=== PATIENT | female | born 1960 | race Caucasian/White ===

== ENCOUNTER 2018-11-18 01:32 | Outpatient (CLI) | payer BC, SELFPAY ==
[2018-11-18 10:02] LABS: Hemoglobin A1C 9.9 % (4.5-6.2)
[2018-11-18 10:07] LABS: Anion Gap 10.5 mmol/L (3-11); BUN 18 mg/dL (7-18); CO2 30.5 mmol/L (21.0-32.0); CREATININE 1.19 mg/dL (0.55-1.02); Calcium 10.3 mg/dL (8.5-10.1); Calculated LDL 106 mg/dL; Chloride 102 mmol/L (98-107); Cholesterol 184 mg/dL (50-200); Estimated GFR 46.75 (mL/min/1.73m2); Glucose 101 mg/dL (70-100); HDL Cholesterol 39 mg/dL (40-60); Potassium 4.8 mmol/L (3.5-5.1); Sodium 143 mmol/L (136-145); Triglyceride 195 mg/dL (30-150)
[2018-11-18 10:10] LABS: COMMENT (LAB VIEW ONLY) 94.58 mg/dL
== END 2018-11-18 01:52 ==
PROVIDERS: PCP Registered Nurse; Visit Provider Registered Nurse
DX: E11.65 Type 2 diabetes mellitus with hyperglycemia (principal); E78.5 Hyperlipidemia, unspecified; I10 Essential (primary) hypertension
CPT/HCPCS: 36415; 80048; 80061; 83721; 82043; 82570; 83036

== ENCOUNTER 2019-10-28 03:06 | Outpatient (CLI) | payer BC, SELFPAY ==
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
== END 2019-10-28 03:26 ==
PROVIDERS: PCP Registered Nurse; Visit Provider Dietitian, Registered
DX: E11.9 Type 2 diabetes mellitus without complications (principal); F50.89 Other specified eating disorder; Z71.3 Dietary counseling and surveillance
CPT/HCPCS: 97802

== ENCOUNTER 2019-12-09 04:51 | Outpatient (CLI) | payer BC, SELFPAY ==
--- NOTE | 2019-12-09 14:00 | NS.NUTBLAN_ITS ---
Eloina returns for Medical Nutrition Therapy for binge eating disorder and diabetes management. Eloina does not want to be weighed but appears to have lost about 10 lbs and reports feeling well overall. Eloina reports walking 10 miles per week, 2 miles 5 times a week at work. She reports no purging but has binged about 5 times in last 3 months. She continues to work FT and care for her aging mother after work and on weekends. She attributes her binges on triggers with her relationship with her mother. Diet record indicates well balanced meals and increase in protein rich foods. She is using [employer] to log her meal plan and to monitor calorie and protein intake. Estimated needs: [id number] kcal, 80-100 g protein, 60-80 g protein. Session today focused on her binge eating behaviors, feeling and ways to understand the disorder with less guilt. Provided Eloina with several resources explaining binge eating disorder and different approaches/treatments for it. Plan: 1. Eloina will keep a binge journal and share with typewriter mechanic to be better able to discuss feeling that cause binging. 2. will continue to track meal plan on myCoveritynesspal and monitor nutrient intake. follow up in next couple of months. Eloina to reach out and make appt.
== END 2019-12-09 05:11 ==
PROVIDERS: PCP Registered Nurse; Visit Provider Dietitian, Registered
DX: F50.81 Binge eating disorder (principal); E11.9 Type 2 diabetes mellitus without complications; Z71.3 Dietary counseling and surveillance
CPT/HCPCS: 97803

== ENCOUNTER 2020-05-25 03:44 | Outpatient (CLI) | payer BC, SELFPAY ==
[2020-05-25 07:42] LABS: Hemoglobin A1C 9.4 % (<5.7)
[2020-05-25 10:15] LABS: ALT 21 U/L (14-59); AST 12 U/L (15-37); Albumin 3.4 g/dL (3.4-5.0); Alkaline Phosphatase 99 U/L (46-116); Anion Gap 7.3 mmol/L (3-11); BUN 13 mg/dL (7-18); Bilirubin, Total 0.5 mg/dL (0.2-1.0); CO2 31.7 mmol/L (21.0-32.0); Calcium 9.8 mg/dL (8.5-10.1); Calculated LDL 70 mg/dL (<100); Chloride 104 mmol/L (98-107); Cholesterol 144 mg/dL (<200); Estimated GFR 56.95 (mL/min/1.73m2); Glucose 58 mg/dL (74-106); HDL Cholesterol 52 mg/dL (40-60); Potassium 4.1 mmol/L (3.5-5.1); Sodium 143 mmol/L (136-145); Total Protein 6.1 g/dL (6.4-8.2); Triglyceride 113 mg/dL (<150)
== END 2020-05-25 04:04 ==
PROVIDERS: PCP Registered Nurse; Visit Provider Registered Nurse
DX: E11.65 Type 2 diabetes mellitus with hyperglycemia (principal); I10 Essential (primary) hypertension; E78.5 Hyperlipidemia, unspecified
CPT/HCPCS: 36415; 80053; 80061; 83036

== ENCOUNTER 2020-08-16 13:28 | Emergency (ER) | payer BC, SELFPAY ==
[2020-08-16 13:32] VITALS: BP 124/72; PULSE 75; RESP 20; TEMP 36.5; O2SAT 99
--- NOTE | 2020-08-16 14:43 | W.ED.GENAD ---
Discharge Plan Disposition Patient Disposition: HOME Condition: Stable Discharge Details Clinical Impression: Cellulitis Primary Care Provider: Sisi Belcher ED Provider: Ofe Butts Home Meds and New Rx's Prescriptions: New amoxicillin-pot clavulanate [Augmentin] 875-125 mg tablet 1 tab PO BID Qty: 14 RF: 0 doxycycline hyclate 100 mg capsule 100 mg PO BID Qty: 14 RF: 0 Continued metformin 500 mg tablet See Rx Instructions .ROUTE .COMPLEX RF: 0 atorvastatin 20 mg tablet 20 mg PO QHS RF: 0 Lantus U-100 Insulin 100 unit/mL solution 25 unit SUBCUT QHS RF: 0 trazodone 50 mg tablet 50 mg PO QHS RF: 0 enalapril maleate 20 mg tablet 20 mg PO QAM RF: 0 glimepiride 4 mg tablet 8 mg PO QNOON RF: 0 hydrochlorothiazide 25 mg tablet 25 mg PO DAILY RF: 0 gabapentin 100 mg capsule 100 mg PO TID RF: 0 bupropion HCl 150 mg tablet extended release 24 hr 150 mg PO QAM RF: 0 Bydureon BCise 2 mg/0.85 mL auto-injector SUBCUT QWEEK RF: 0 Discontinued amoxicillin-pot clavulanate 875-125 mg tablet 1 tab PO BID RF: 0 Discharge Instructions Instructions: Doxycycline (By mouth), Cellulitis (ED) Additional Instructions: Please return immediately to the emergency department if you develop any new or worsening symptoms, if your condition does not improve as expected, or if you become otherwise concerned. It is extremely important that you call soon as possible to make an appointment to be seen in follow-up for this visit by your primary care doctor. Referrals: Sisi Belcher [Primary Care Provider] - Discharge Data Discharge Date/Time-TO BE ENTERED AT DEPARTURE: 08/16/20 15:47 Medical Decision Making Eloina Rayo is a 59-year-old woman with a history of diabetes controlled by diet, hypertension, hyperlipidemia who presented to the emergency department with continued erythema and serous drainage from 2 left lower leg wound sustained by cat scratch, patient has completed 14-day course of Augmentin today. Concern for ongoing mild cellulitis despite appropriate outpatient antibiotic coverage. Plan for screening labs, will discuss with infectious disease to avoid parenteral antibiotic/hospital admission given mild appearance of cellulitis and general improvement at this time. Exam/history is not consistent with abscess, compartment syndrome, DVT, sepsis, bony pathology. Labs reviewed, white count 12.8. I discussed patient presentation with infectious disease at [facility] for informal consult, who recommended patient be continued on 7 days of Augmentin, and also have 7 days course of double strength Bactrim added to her regimen. Will prescribe his antibiotics. Discussed with patient, who is amenable to plan. I had a lengthy discussion with Patient regarding return to emergency department precautions, home care, and importance of outpatient follow-up. Pt verbalizes understanding of the plan and is amenable. Patient discharged to home with clear plan for outpatient follow-up. All questions were answered. Disposition decision was made weighing the risks and benefits of hospitalization versus outpatient treatment, the risk for further decompensation, and the patient's wishes. Medical Records Medical records reviewed: Yes I reviewed the patient's medical records. Lab Data Lab results reviewed: Yes I reviewed the patient's lab results. Labs: Laboratory Tests Range/Units 08/16/20 08/16/20 15:05 15:05 WBC (4.4-10.8) 10^3/uL 12.83 H RBC (3.93-5.22) 10^6/uL 5.45 H Hgb (11.2-15.7) g/dL 15.4 Hct (36.0-46.0) % 48.2 H MCV (80-95) fL 88.4 MCH (27.0-33.0) pg 28.3 MCHC (32.0-36.0) % 32.0 RDW (11.7-14.6) % 13.2 Plt Count (130-400) 10^3/uL 386 MPV (8.0-11.0) fL 10.3 Immature Gran % 0.3 Neutrophils % 49.0 Lymphocytes % 37.9 Monocytes % 5.2 Eosinophils % 6.7 Basophils % 0.9 Nucleated RBC % % 0 Absolute Neutrophils (1.2-6.7) 10^3/uL 6.29 Absolute Lymphocytes (1.2-3.4) 10^3/uL 4.86 H Absolute Monocytes (0.1-0.8) 10^3/uL 0.67 Absolute Eosinophils (0.0-0.7) 10^3/uL 0.86 H Absolute Basophils (0.0-0.2) 10^3/uL 0.12 Sodium (136-145) mmol/L 142 Potassium (3.5-5.1) mmol/L 4.2 Chloride (98-107) mmol/L 102 Carbon Dioxide (21.0-32.0) mmol/L 30.4 Anion Gap (3-11) mmol/L 9.6 BUN (7-18) mg/dL 16 Creatinine (0.55-1.02) mg/dL 1.1 H Estimated GFR/1.73 m2 (mL/min/1.73m2) 51.02 Glucose (74-106) mg/dL 127 H Calcium (8.5-10.1) mg/dL 10.1 Total Bilirubin (0.2-1.0) mg/dL 0.4 AST (15-37) U/L 16 ALT (14-59) U/L 23 Alkaline Phosphatase (46-116) U/L 99 Total Protein (6.4-8.2) g/dL 7.5 Albumin (3.4-5.0) g/dL 3.8 HPI General Mode of arrival: ambulatory. Date/Time Provider Initiated Documentation: 08/16/20 13:36. Limitations to Documentation: no limitations. Information obtained by: patient, RN notes reviewed and old records reviewed. HPI Narrative: Eloina Rayo is a 59-year-old woman with history of diabetes controlled with diet, hyperlipidemia, hypertension presenting to the emergency department with infection after cat scratch. Patient reports that on 08/02 her cat got free and when she attempted to capture it it bit and scratched her. Patient reports that she received bites to her hands and scratches to her legs. Patient reports that she is sure she was not bit on the leg as only the cat's hind legs may contact with her in that area. Patient reports that cat is vaccinated for rabies. Patient reports that she was treated that day with Augmentin with plan for 10 days of treatment. Patient reports that she took all her antibiotics as prescribed. Patient reports that scratch grover on her left leg continued to have surrounding redness and yellow drainage on the last day of antibiotic treatment, and she was then prescribed 4 more days of Augmentin. Patient reports that 2 lower leg wounds continue to have surrounding redness and drainage and she is concerned that they have not fully healed despite completion of her now 14 day antibiotic course. Patient reports that wounds to hand and other lower leg wound have healed at this time. Patient denies pain, fevers, vomiting, shortness of breath, cough, numbness, weakness, rash. She reports that she feels otherwise well and in her usual state of health. Related Data Home Medications Medication Instructions Recorded Confirmed Bydureon BCise mg SUBCUT QWEEK 08/16/20 Lantus U-100 Insulin 25 unit SUBCUT QHS 08/16/20 08/16/20 amoxicillin-pot clavulanate 1 tab PO BID #14 tab 08/16/20 [Augmentin] atorvastatin 20 mg PO QHS 08/16/20 08/16/20 bupropion HCl 150 mg PO QAM 08/16/20 08/16/20 doxycycline hyclate 100 mg PO BID #14 cap 08/16/20 enalapril maleate 20 mg PO QAM 08/16/20 08/16/20 gabapentin 100 mg PO TID 08/16/20 08/16/20 glimepiride 8 mg PO QNOON 08/16/20 08/16/20 hydrochlorothiazide 25 mg PO DAILY 08/16/20 08/16/20 metformin See Rx Instructions .ROUTE .COMPLEX 08/16/20 08/16/20 trazodone 50 mg PO QHS 08/16/20 08/16/20 Previous Rx's Medication Instructions Recorded amoxicillin-pot clavulanate 1 tab PO BID #14 tab 08/16/20 [Augmentin] doxycycline hyclate 100 mg PO BID #14 cap 08/16/20 Allergies Allergy/AdvReac Type Severity Reaction Status Date / Time codeine AdvReac Itching Unverified 08/16/20 13:36 morphine AdvReac Itching Unverified 08/16/20 13:36 General Stated Complaint: Cellulitis SANDI: 4 Review of Systems Narrative: Constitutional: denies fevers Eyes: denies eye pain ENT: denies ear pain, dental pain, sore throat Cardiovascular: denies chest pain Respiratory: denies SOB, cough GI: denies abdominal pain, vomiting, diarrhea : denies flank pain MSK: denies back pain, neck pain, arthralgias, myalgias Skin: denies rash, reports skin wound as per HPI Neuro: denies headaches, numbness, weakness [facility] Medical History (Updated 08/16/20 @ 15:36 by Ofe Butts MD) Diabetes Hypercholesteremia Hypertension Surgical History (Updated 08/16/20 @ 13:44 by Ofe Quinn) H/O oophorectomy Hx of appendectomy Social History Smoking/Tobacco Use Status: Current every day Smoking risk assessment performed?: Yes Alcohol Intake: never Drug use: Never Substance use type: does not use Do you feel safe at home: Yes Do you feel safe in your relationship?: Yes Exam Narrative Exam Narrative: Constitutional: well and [id number], pleasant, conversing normally HENT: head atraumatic/normocephalic/normal inspection, mucous membranes moist Eyes: conjunctiva normal, sclera normal, pupils 3mm b/l Neck: no stridor, normal ROM, trachea midline Resp: normal work of breathing, speaking in full sentences Cardio: normal rate, normal rhythm Skin: warm, dry, normal color, no rash Neuro: alert, not altered, grossly non-focal, normal tone Ext: Multiple healing wounds to left lower leg, two 1 cm adjacent wounds left anterior lower leg with 1 to 2 cm surrounding erythema and edema and small amount of serous drainage, no posterior calf tenderness palpation, no other erythema of the leg Psych: normal mood, normal affect, normal behavior Course Vital Signs Vital signs: Vital Signs Temperature 36.5 C 08/16/20 13:32 Pulse 75 08/16/20 13:32 Respiratory Rate 20 08/16/20 13:32 Blood Pressure 124/72 08/16/20 13:32 Pulse Oximetry 99 08/16/20 13:32 Temperature 36.5 C 08/16/20 13:32 Temperature Source Skin 08/16/20 13:32 Pulse 75 08/16/20 13:32 Respiratory Rate 20 08/16/20 13:32 Respiratory Effort Non-Labored 08/16/20 13:42 Blood Pressure 124/72 08/16/20 13:32 Blood Pressure Position Sitting 08/16/20 13:32 Pulse Oximetry 99 08/16/20 13:32 Oxygen Delivery Method Room Air 08/16/20 13:32 Oxygen Flow Rate 0 08/16/20 13:32 Pain Level 0 08/16/20 13:32
[2020-08-16 15:12] LABS: Abs Immature Grans 0.04 10^3/uL (0.0-0.06); Absolute Eosinophil Count 0.86 10^3/uL (0.0-0.7); Absolute Lymphocyte Count 4.86 10^3/uL (1.2-3.4); Absolute Monocyte Count 0.67 10^3/uL (0.1-0.8); Absolute Neutrophil Count 6.29 10^3/uL (1.2-6.7); Basophils % 0.9; Eosinophils % 6.7; HCT 48.2 % (36.0-46.0); HGB 15.4 g/dL (11.2-15.7); Immature Grans % 0.3; Lymphocytes % 37.9; MCH 28.3 pg (27.0-33.0); MCV 88.4 fL (80-95); MPV 10.3 fL (8.0-11.0); Monocytes % 5.2; Nucleated RBC 0 %; Platelet Count 386 10^3/uL (130-400); RBC 5.45 10^6/uL (3.93-5.22); RDW 13.2 % (11.7-14.6); RDW-SD 42.5 fL; WBC 12.83 10^3/uL (4.4-10.8)
[2020-08-16 15:13] LABS: Absolute Basophil Count 0.12 10^3/uL (0.0-0.2)
[2020-08-16 15:25] LABS: ALT 23 U/L (14-59); AST 16 U/L (15-37); Albumin 3.8 g/dL (3.4-5.0); Alkaline Phosphatase 99 U/L (46-116); Anion Gap 9.6 mmol/L (3-11); BUN 16 mg/dL (7-18); Bilirubin, Total 0.4 mg/dL (0.2-1.0); CO2 30.4 mmol/L (21.0-32.0); CREATININE 1.1 mg/dL (0.55-1.02); Calcium 10.1 mg/dL (8.5-10.1); Chloride 102 mmol/L (98-107); Estimated GFR 51.02 (mL/min/1.73m2); Glucose 127 mg/dL (74-106); Potassium 4.2 mmol/L (3.5-5.1); Sodium 142 mmol/L (136-145); Total Protein 7.5 g/dL (6.4-8.2)
== END 2020-08-16 15:47 | disposition home or self-care (01) ==
PROVIDERS: Emergency Provider Student in an Organized Health Care Education/Training Program; PCP Registered Nurse
DX: L03.116 Cellulitis of left lower limb (principal); S81.812A Laceration without foreign body, left lower leg, initial encounter; W55.03XA Scratched by cat, initial encounter; E11.9 Type 2 diabetes mellitus without complications; Z79.4 Long term (current) use of insulin
CPT/HCPCS: 36415; 80053; 99283; 85025

== ENCOUNTER 2021-03-10 09:53 | Emergency (ER) | payer BC, SELFPAY ==
[2021-03-10] VITALS (19 sets, daily range): BP systolic 129–202; BP diastolic 70–122; PULSE 74–113; RESP 10–18; TEMP 36.6; O2SAT 96–100
--- NOTE | 2021-03-10 09:45 | RT.EKG_ITS ---
APPROVED REPORT Exam: Resting ECG Reason for Exam: [facility] Patient Location: E HR:92 bpm ECG Measurements Heart Rate 92 AXIS FL [id number] P [id number] QRSd 82 QRS 15 QT 366 T 53 QTc 453 Conclusion Atrial fibrillation...? atrial activity Sinus. No STEMI. I have reviewed and interpreted ECG and agree with software generated interpretation.
--- NOTE | 2021-03-10 10:29 | ED.GENADUL_ITS ---
Discharge Plan Disposition Patient Disposition: HOME Condition: Good Discharge Details Clinical Impression: Right sided weakness Primary Care Provider: Sisi Belcher ED Provider: Jimena Herrera Home Meds and New Rx's Prescriptions: Continued metformin 500 mg tablet See Rx Instructions .ROUTE .COMPLEX RF: 0 atorvastatin 20 mg tablet 20 mg PO QHS RF: 0 Lantus U-100 Insulin 100 unit/mL solution 25 unit SUBCUT QHS RF: 0 enalapril maleate 20 mg tablet 20 mg PO QAM RF: 0 glimepiride 4 mg tablet 8 mg PO QNOON RF: 0 hydrochlorothiazide 25 mg tablet 25 mg PO DAILY RF: 0 gabapentin 100 mg capsule 100 mg PO TID RF: 0 bupropion HCl 150 mg tablet extended release 24 hr 150 mg PO QAM RF: 0 Bydureon BCise 2 mg/0.85 mL auto-injector SUBCUT QWEEK RF: 0 doxepin 25 mg capsule 25 mg PO DAILY RF: 0 Discharge Instructions Additional Instructions: Take a baby aspirin, 81 mg daily Follow-up with the neurologist next week Do not consume any alcohol until reassessment Do not climb any ladders or take until you are reevaluated by neurology, recommendation to you have assistance driving Please return immediately should you have new or worsening symptoms Please call your doctor to involve them in your care Referrals: Sisi Belcher [Primary Care Provider] - Ashley Hutchinson MD [ [facility] STAFF PHYSICIAN] - Discharge Data Discharge Date/Time-TO BE ENTERED AT DEPARTURE: 03/10/21 13:56 Medical Decision Making Patient is alert, oriented, of decisional capacity, without any intervention, blood pressure went from 202/86-120 9/84 She was in the emergency room for approximately 4 and half hours, she received MRI/MRA of her head and neck MRI and MRA does not show acute abnormality Given her exam and concerning findings, I did discuss the case with Dr. Hutchinson, neurology and at the patient's symptoms have completely resolved at this time, she feels comfortable following up with patient in the outpatient setting Remainder of diagnostics are within normal limits Patient is ambulatory with steady gait with stable vital signs and completely symptomatically improved Is difficult to say whether or not this may have been a TIA Patient assures me that she does not consume alcohol, if she had a differential such as neuropathy would be of cancer With a normal-appearing MRI I think less likely to be multiple sclerosis or any sort of demyelinating disease, however neurology outpatient follow-up is certainly warranted She will start a baby aspirin daily in the interim Dr. Hutchinson will follow-up, referral placed, follow-up in 1 to 2 days recommended early return precautions discussed patient expressed understanding Medical Records Medical records reviewed: Yes I reviewed the patient's medical records. Lab Data Lab results reviewed: Yes I reviewed the patient's lab results. HPI General Mode of arrival: ambulatory . Date/Time Provider Initiated Documentation: 03/10/21 09:55 . Limitations to Documentation: no limitations . HPI Narrative: This 60-year-old female with history of hypertension, hyperlipidemia, insomnia presents with report of between 6-8 episodes of of alteration mental status. She states her last episode was a week prior to this. She states she awoke on the floor with this episode and the nightstand was destroyed. She states she went to bed around 9 and felt well at that time. She her right side was weak and she was having difficulty ambulating when she awoke at 7. She did drive herself to the emergency room despite being dizzy. She denies any headache. She states she feels foggy. She states that her right arm and leg are weak and she has decreased sensation. She denies any chest pain or shortness of breath. She denies any palpitations. She is medication changed from trazodone to doxepin in the evening. She denies any additional medication changes. She is a diabetic, her blood sugars have been within normal limits per patient. She did not check her blood sugar this morning. She states that the previous episode her symptoms have resolved upon waking, this is more for which is why she presents. She does smoke tobacco. She denies any illicit drug use or alcohol use. Related Data Home Medications Medication Instructions Recorded Confirmed Bydureon BCise mg SUBCUT QWEEK 08/16/20 Lantus U-100 Insulin 25 unit SUBCUT QHS 08/16/20 03/10/21 atorvastatin 20 mg PO QHS 08/16/20 03/10/21 bupropion HCl 150 mg PO QAM 08/16/20 03/10/21 enalapril maleate 20 mg PO QAM 08/16/20 03/10/21 gabapentin 100 mg PO TID 08/16/20 03/10/21 glimepiride 8 mg PO QNOON 08/16/20 03/10/21 hydrochlorothiazide 25 mg PO DAILY 08/16/20 03/10/21 metformin See Rx Instructions .ROUTE .COMPLEX 08/16/20 03/10/21 doxepin 25 mg PO DAILY 03/10/21 03/10/21 Allergies Allergy/AdvReac Type Severity Reaction Status Date / Time codeine AdvReac Itching Unverified 03/10/21 10:04 morphine AdvReac Itching Unverified 03/10/21 10:04 General Stated Complaint: CVA/TIA SANDI: 2 Review of Systems All systems reviewed & are unremarkable except as noted in HPI and below PFSH Medical History (Updated 03/10/21 @ 13:45 by DARCY Pritchard) Diabetes Hypercholesteremia Hypertension Surgical History (Updated 08/16/20 @ 13:44 by Ofe Quinn) H/O oophorectomy Hx of appendectomy Social History Smoking/Tobacco Use Status: Current every day Smoking risk assessment performed?: Yes Alcohol Intake: never Drug use: Never Substance use type: does not use Do you feel safe at home: Yes Do you feel safe in your relationship?: Yes Exam Const General: cooperative Orientation: alert and oriented x3 HENMT Head: normal to inspection Mouth: oral mucosae normal Eyes Pupils: PERRL EOM: EOM intact bilaterally Neck Other: No carotid bruits Resp Effort & Inspection: normal respiratory effort Auscultation: clear to auscultation bilaterally Cardio Rate: regular rate Rhythm: regular rhythm GI Inspection: normal to inspection Skin General skin exam: no rashes or lesions noted Neuro General: patient alert and patient oriented x3 Cranial Nerves: CN's II-XI intact bilaterally and PERRL Cognition: normal cognition Speech: speech normal Gait: ataxic Sensory Exam: no sensory deficits noted Other: Positive FNF, positive pronator drift Heel correa intact, however mildly weak, 3 out of 5 right lower extremity Extrem General: normal to inspection Other: Distal pulses intact Course Vital Signs Vital signs: Vital Signs Temperature 36.6 C 03/10/21 10:00 Pulse 88 03/10/21 10:00 Respiratory Rate 18 03/10/21 10:00 Blood Pressure 202/86 H 03/10/21 10:00 Pulse Oximetry 100 03/10/21 10:00 Temperature 36.6 C 03/10/21 10:00 Temperature Source Temporal Artery Scan 03/10/21 10:00 Pulse 88 03/10/21 10:00 Respiratory Rate 18 03/10/21 10:06 Respiratory Effort Non-Labored 03/10/21 10:06 Respiratory Depth Normal 03/10/21 10:06 Respiratory Pattern Normal 03/10/21 10:06 Blood Pressure 202/86 H 03/10/21 10:00 Blood Pressure Position Sitting 03/10/21 10:00 Pulse Oximetry 100 03/10/21 10:00 Oxygen Delivery Method Room Air 03/10/21 10:00 Oxygen Flow Rate 0 03/10/21 10:00 Pain Level 0 03/10/21 10:00
[2021-03-10] MEDS: Normal Saline 500 ML IV (10:31)
[2021-03-10] MEDS: Ondansetron 4 MG/2 ML VIAL IVP (10:32)
[2021-03-10 10:36] LABS: Abs Immature Grans 0.05 10^3/uL (0.0-0.06); Absolute Basophil Count 0.12 10^3/uL (0.0-0.2); Absolute Eosinophil Count 0.23 10^3/uL (0.0-0.7); Basophils % 0.8; Eosinophils % 1.5; HCT 48.1 % (36.0-46.0); HGB 15.8 g/dL (11.2-15.7); Immature Grans % 0.3; Lymphocytes % 23.1; MCH 28.7 pg (27.0-33.0); MCHC 32.8 % (32.0-36.0); MCV 87.5 fL (80-95); MPV 10.2 fL (8.0-11.0); Monocytes % 4.6; Neutrophils % 69.7; Nucleated RBC 0 %; Platelet Count 383 10^3/uL (130-400); RDW 13.4 % (11.7-14.6); RDW-SD 43.2 fL; WBC 15.12 10^3/uL (4.4-10.8)
[2021-03-10 10:37] LABS: Absolute Lymphocyte Count 3.49 10^3/uL (1.2-3.4); Absolute Neutrophil Count 10.54 10^3/uL (1.2-6.7)
[2021-03-10 10:57] LABS: Alkaline Phosphatase 122 U/L (46-116); BUN 13 mg/dL (7-18); Bilirubin, Total 0.7 mg/dL (0.2-1.0); Calcium 10.2 mg/dL (8.5-10.1); Estimated GFR 56.75 (mL/min/1.73m2); Glucose 176 mg/dL (74-106); Sodium 141 mmol/L (136-145); Total Protein 7.7 g/dL (6.4-8.2)
[2021-03-10 10:58] LABS: ALT 37 U/L (14-59); AST 32 U/L (15-37); Anion Gap 10.3 mmol/L (3-11); CO2 27.7 mmol/L (21.0-32.0); Chloride 103 mmol/L (98-107); Magnesium 1.8 mg/dL (1.8-2.4); Potassium 4.3 mmol/L (3.5-5.1); Troponin I < 0.05 ng/mL (<0.06)
[2021-03-10 11:06] LABS: Bilirubin Negative (Negative); Blood Small (Negative); Clarity Clear (Clear); Glucose Negative (Negative); Ketones Negative (Negative); Leukocyte Esterase Negative (Negative); Nitrite Negative (Negative); Urobilinogen 0.2 EU/dL (Up TO 0.2)
[2021-03-10 11:15] LABS: Bacteria Few HPF (Negative); C & S Indicated? No/Sq. Contamination; Casts Negative LPF (Negative); Crystals Negative HPF (Negative); Epithelial Cells Many HPF (Negative); Mucus Negative (Negative); WBC 0-2 HPF (0-5)
--- NOTE | 2021-03-10 12:00 | DI.MRI_ITS ---
Exam(s) MR ANGIO NECK WO EXAM: MR ANGIO NECK WO CLINICAL HISTORY: right sided weakness. TECHNIQUE: Multiplanar multisequence MRA of the Neck was performed. COMPARISON: No exams were available for comparison FINDINGS: Common Carotid: Right: No dissection, occlusion or significant stenosis. Left: No dissection, occlusion or significant stenosis. External Carotid: Right: No evidence of occlusion or significant stenosis. Left: No evidence of occlusion or significant stenosis. Internal Carotid: Right: No dissection, occlusion or significant stenosis. Left: No dissection, occlusion or significant stenosis. Vertebral Artery: Right: No dissection, occlusion or significant stenosis. Left: No dissection, occlusion or significant stenosis. The visualized paraspinal soft tissues are unremarkable. IMPRESSION: No evidence of dissection, occlusion or significant stenosis. DATA REPOSITORY:
--- NOTE | 2021-03-10 12:15 | DI.MRI_ITS ---
Exam(s) MR ANGIO BRAIN WO CLINICAL HISTORY: right sided weakness. TECHNIQUE: Multiplanar multisequence MRA of the brain was performed. COMPARISON: None. FINDINGS: Carotid Arteries: Petrous: Normal. Cavernous: Normal. Cerebral: Normal. Middle Cerebral Arteries: Right: No aneurysm or significant stenosis. Left: No aneurysm or significant stenosis. Anterior Cerebral Arteries: Right: No aneurysm or significant stenosis. Left: No aneurysm or significant stenosis. Vertebral Arteries: Left: No aneurysm or significant stenosis. Left vertebral artery dominant. . Basilar Artery: No aneurysm or significant stenosis. Small Vessels: No evidence of beading. IMPRESSION: Normal MRA examination of the [place]. DATA REPOSITORY:
--- NOTE | 2021-03-10 12:45 | DI.MRI_ITS ---
Exam(s) MR BRAIN WO EXAM: MR BRAIN WO CLINICAL HISTORY: right sided weakness. TECHNIQUE: Multiplanar multisequence MRI of the brain was performed. CONTRAST MATERIAL: Noncontrast COMPARISON: MR MR ANGIO BRAIN WO from 03/10/2021 FINDINGS: VENTRICLES AND EXTRA AXIAL SPACES: Normal in size and morphology for the patient's age. HEMORRHAGE: None. CEREBRAL PARENCHYMA: No focus of restricted diffusion to suggest acute infarct. No space-occupying le daryl identified. MIDLINE SHIFT: None. BRAINSTEM/CEREBELLUM: Normal. VISUALIZED PARANASAL SINUSES/MASTOIDS: Mucous retention cyst floor left maxillary sinus. Mucosal thi ckening ethmoid sinuses. OTHER FINDINGS: None. IMPRESSION: Unremarkable MRI of the brain. DATA REPOSITORY:
--- NOTE | 2021-03-10 12:48 | DI.RAD_ITS ---
Exam(s) XR CHEST 1V IN DI DEPT EXAM: XR CHEST 1V IN DI DEPT CLINICAL HISTORY: right sided weakness TECHNIQUE: 2D digital imaging was performed. COMPARISON: CR XR CHEST 1V IN DI DEPT from 03/10/2021 FINDINGS: LUNGS: Clear. No pleural abnormality seen. HEART: Normal. MEDIASTINUM: Normal. BONES: Unremarkable. IMPRESSION: No acute pulmonary findings. DATA REPOSITORY: RADIATION DOSE DELIVERED:
--- NOTE | 2021-03-10 18:39 | NUR.NOTE ---
referral to neurology
== END 2021-03-10 13:56 | disposition home or self-care (01) ==
PROVIDERS: Emergency Provider Physician Assistant; PCP Registered Nurse
DX: G81.91 Hemiplegia, unspecified affecting right dominant side (principal); R41.82 Altered mental status, unspecified
CPT/HCPCS: 36415; 36416; 70544; 70547; 80053; 82962; 93005; 96361; 96374; 99285; 70551; 71045; 81003; 81015; 83735; 84484; 85025; 93010; 99284; J2405

== ENCOUNTER 2021-03-30 21:17 | Observation (INO) | payer BC, SELFPAY ==
[2021-03-30 20:59] VITALS: BP 171/82; PULSE 81; RESP 16; TEMP 36; O2SAT 97
--- NOTE | 2021-03-30 21:20 | HPE_ITS ---
Date of service: 03/30/21 Time of Service: 21:20 Assessment and Plan Assessment and plan (1) Seizure: Status: Acute Assessment and plan: Her symptoms are bit atypical for seizures however she was incontinent of stool with 1 of these episodes and incontinent of urine more than one occurrence. It has a bit unusual these episodes are happening at night only. She does not think the recent introduction of Keppra has changed the frequency of these episodes. We will plan on getting an EEG tomorrow. I have ordered a neurologic consult. I will check a magnesium level again tomorrow. I have not changed her bupropion dose. (2) Hypoglycemia: Status: Acute Assessment and plan: Should be monitored for the hypoglycemia. I cut back on the dose of her oral diabetic glimepiride but kept on the same dose of her glargine insulin and Metformin. Will check sugars every 6 hours. History of Present Illness History of Present Illness Chief Complaint: Unusual spells Narrative: This 60-year-old female lives in [facility] and was taken to [facility] this morning because of a hypoglycemic reaction. She states that over the last 8 to 10 weeks she has had number of episodes in which she has found herself weak on her right side of her body and sometimes in the middle of the night she is crawling to the bathroom. She does not think that these have been related to hypoglycemia as sometimes she gets up after she composes her self and is able to walk and her sugars are above 70. A few weeks ago she was seen in the emergency department and because of her episodes it was thought that she might have a seizure disorder and was started on Keppra. She had a visit with neurology and EEG was scheduled but has not been done yet. She says after the fifth episode that she had had a hole developed in the wall at home and she does not really know how this happened so she had a camera installed so she could review what she might be doing in the middle the night. A bedside table had been knocked over and she does not know if that put a hole in the wall or something else did. She says she typically is weak on the right side all the first time this happened she was weak on the left side. She went to bed last night and felt fine and this morning she found herself waking up at about 11 AM and was unable to move and heard the phone ring. She was quite worried because she thought she had some mucus in her throat and she could not pick her head up. She heard someone pounding on the door which was the emergency services try to get into her house. She says her sugar was checked by EMS and it was 42. [facility] was her closest hospital nearby and she was taken there and later in her evaluation consultation was done here with Dr. Hutchinson and it was requested that she be transferred here as other centers had no bed availability. She had a head CT as well as a CTA of her head and neck. Labs were done which showed low blood sugars. She lives by herself. She has a martini a couple times a year and smokes 4 cigarettes/day. 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 No neurologic defects were noted at [facility]. She did have an elevated white blood cell count of 13,000. A urine culture was ordered because of some white blood cells and bacteria in her urine. Her magnesium was found to be slightly low at 1.5 today. Review of Systems Constitutional Constitutional: Denies chills, Denies fever(s) and Denies malaise Eyes Eyes: Denies diplopia, Denies seeing flashes and Denies spots in vision Cardiovascular Cardiovascular: Denies chest pain, Denies irregular heart rhythm, Denies radiating jaw, neck or arm pain, Denies palpitations and Denies dyspnea Respiratory Respiratory: Reports chest congestion, Reports cough and Denies dyspnea Gastrointestinal Gastrointestinal: Denies heartburn, Denies diarrhea, Denies nausea and Denies vomiting Genitourinary Genitourinary: Denies urinary frequency and Denies difficulty voiding Musculoskeletal Musculoskeletal: Denies tingling Neurologic Neurologic: Reports convulsions, Denies sensory deficit and Denies tingling Endocrine Endocrine: Denies palpitations [facility] Active Problem List Seizure (Acute) Cellulitis (Acute) Right sided weakness (Acute) Medical History Diabetes Hypercholesteremia Hypertension Insomnia Migraine headache with aura Surgical History H/O oophorectomy Hx of appendectomy S/P ACL repair S/P cervical discectomy S/P dilatation and curettage S/P tonsillectomy and adenoidectomy S/P wisdom tooth extraction Status post ORIF of fracture of ankle Family History Mother Hypertension Hyperlipidemia Social History Smoking/Tobacco Use Status: Current every day Tobacco Type: cigarettes Years smoked: 30 Smoking risk assessment performed?: Yes Alcohol Intake: current Alcohol Intake frequency: holidays/special occasions only Alcohol type: wine Drug use: Never Substance use type: does not use Household members: none Number of Children: 0 current occupation: accounting at [employer] What is your relationship status?: Panel score (0-1 are the most socially isolated patients): 0 Do you feel safe at home: Yes Do you feel safe in your relationship?: Yes Meds Allergies and Home Medications Allergies Allergy/AdvReac Type Severity Reaction Status Date / Time codeine AdvReac Itching Unverified 03/17/21 13:51 morphine AdvReac Itching Unverified 03/17/21 13:51 Home Medications Medication Instructions Recorded Confirmed Type Bydureon BCise mg SUBCUT QWEEK 08/16/20 03/17/21 History Lantus U-100 Insulin 25 unit SUBCUT QHS 08/16/20 03/30/21 History atorvastatin 20 mg PO QHS 08/16/20 03/30/21 History bupropion HCl 150 mg PO QAM 08/16/20 03/30/21 History enalapril maleate 20 mg PO QAM 08/16/20 03/30/21 History gabapentin 100 mg PO TID 08/16/20 03/30/21 History glimepiride 8 mg PO QNOON 08/16/20 03/30/21 History hydrochlorothiazide 25 mg PO DAILY 08/16/20 03/30/21 History metformin See Rx Instructions .ROUTE .COMPLEX 08/16/20 03/30/21 History aspirin 81 mg tablet,delayed 81 mg PO DAILY 03/17/21 03/30/21 History release levetiracetam 500 mg tablet 500 mg PO BID #60 tab 11/18/21 12/01/21 Rx Exam Const General: cooperative, healthy appearing, no acute distress and well developed Nutritional Appearance: average body habitus Orientation: alert, awake and oriented x3 HENMT Mouth: oral mucosae normal and normal tongue Eyes General: appearance normal, both eyes and all related structures Pupils: PERRL EOM: EOM intact bilaterally Neck Neck: normal visual inspection, no lymphadenopathy and no JVD Resp Effort & Inspection: normal respiratory effort and able to speak in complete sentences Auscultation: no rales and no wheezes Cardio Jugular venous pressure: no JVD Rate: regular rate Rhythm: regular rhythm Heart Sounds: S1 normal, S2 normal, no gallops and no murmurs GI Inspection: normal to inspection Palpation: soft, no hepatosplenomegaly and nontender Neuro Cranial Nerves: CN's II-XI intact bilaterally Speech: speech normal Motor: strength 5/5 throughout and no pronator drift Coordination: [id number] test normal Extrem General: normal to inspection and no edema
[2021-03-30 21:27] VITALS: O2SAT 97
[2021-03-30] MEDS: Insulin Glargine 300 UNITS/3 ML PEN 25 UNITS SC (22:42)
[2021-03-30] MEDS: Atorvastatin 20 MG TAB PO (22:42)
[2021-03-30 22:50] VITALS: PULSE 70
[2021-03-30 23:03] VITALS: PULSE 69
[2021-03-30 23:40] VITALS: BP 111/62; PULSE 62; RESP 17; TEMP 37; O2SAT 97
[2021-03-31] VITALS (9 sets, daily range): BP systolic 92–177; BP diastolic 55–90; PULSE 54–73; RESP 14–18; TEMP 34.6–36.6; O2SAT 96–98
[2021-03-31] MEDS: Dextrose 50%-Water 25 GM/50 ML SYR IVP (04:02)
[2021-03-31 04:51] LABS: Anion Gap 6.8 mmol/L (3-11); BUN 13 mg/dL (7-18); CO2 30.2 mmol/L (21.0-32.0); CREATININE 0.9 mg/dL (0.55-1.02); Calcium 9.4 mg/dL (8.5-10.1); Chloride 106 mmol/L (98-107); Glucose 91 mg/dL (74-106); Potassium 3.6 mmol/L (3.5-5.1); Sodium 143 mmol/L (136-145)
[2021-03-31 04:52] LABS: Magnesium 1.8 mg/dL (1.8-2.4)
[2021-03-31] MEDS: buPROPion-XL 150 MG TABCR PO (08:07)
[2021-03-31] MEDS: hydroCHLOROthiazide 25 MG TAB PO (08:07)
[2021-03-31] MEDS: levETIRAcetam 500 MG TAB 1000 MG PO ×2 (08:07→20:54)
[2021-03-31] MEDS: Aspirin E.C. 81 MG TABEC PO (08:07)
[2021-03-31] MEDS: Enalapril 5 MG TAB 20 MG PO (08:08)
[2021-03-31] MEDS: Gabapentin 100 MG CAP PO ×3 (08:08→20:54)
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
[2021-03-31 09:46] LABS: Hemoglobin A1C 7.7 % (<5.7)
--- NOTE | 2021-03-31 11:04 | PHACLINREV_ITS ---
Pharmacy Admission Review - Admission Clinical Review (Last Reviewed 03/17/21 @ 21:26 by Ashley Hutchinson MD) Hypoglycemia (Acute) Seizure (Acute) codeine Adverse Reaction (Unverified 03/17/21 13:51) Itching morphine Adverse Reaction (Unverified 03/17/21 13:51) Itching Resuscitation Status Full Code - Renal Dosing Renal Dosing: BUN Cancelled 03/31/21 05:35 Creatinine Cancelled 03/31/21 05:35 Medications needing adjustments: Reviewed List of meds needing interventions: eCrCl 67 ml/min, all orders ok - Anticoagulation Anticoagulation: Hgb Cancelled 03/31/21 04:16 Hct Cancelled 03/31/21 04:16 Plt Count Cancelled 03/31/21 04:16 Creatinine Cancelled 03/31/21 05:35 DVT Prophylaxis: N/A (moderate fall risk) Therapeutic Anticoagulation: N/A - Opiate Usage Evaluate Pain Scale/Pains Meds: N/A - Relevant Labs Sodium Cancelled 03/31/21 05:35 Potassium Cancelled 03/31/21 05:35 Chloride Cancelled 03/31/21 05:35 Magnesium 1.8 mg/dL (1.8-2.4) 03/31/21 04:30 Electrolytes, C-Reactive P, ESR: Reviewed - DM Control DM Control: Glucose Cancelled 03/31/21 05:35 Hemoglobin A1c 7.7 % (<5.7) H 03/31/21 04:35 Finger Stick Blood Glucose 118 Finger Stick Blood Glucose 118 Finger Stick Blood Glucose 118 Finger Stick Blood Glucose 154 Finger Stick Blood Glucose 154 Finger Stick Blood Glucose 94 Finger Stick Blood Glucose 94 Finger Stick Blood Glucose 26 Finger Stick Blood Glucose 26 Insulin Dosing: Reviewed (uses 25U at hs at home, held for now due to HPI) - Heart Failure/WI EF%, FAWN's, B-Blockers, Diuretics: Reviewed - BP Control BP Control: Blood Pressure 125/80 Blood Pressure 177/90 Blood Pressure 130/62 Blood Pressure 111/62 If elevated: Reviewed - Qtc Review If Elevated: N/A - IV to PO Switch IV Medications: Reviewed - Home Meds Home Med List reviewed: Intervened Relevent Home Meds Not ordered & why?: Not ordered: atorvastatin, doxepin 25mg a t HS (just added BUT I do not recommend adding a TCA as both TCAs and bupropion have the potential to lower seizure threshold so effect could be additive also the combination has potential to increase TCA levels due to bupropion-mediated inhibition of CYP2D6 metabolism of TCAs further increasing risk of seizures), lantus (holding all DM meds due to hypoglycemia) - Current meds Current Medication Order Review: Reviewed
[2021-03-31] MEDS: Insulin Aspart 300 UNITS/3 ML PEN SC (12:08)
--- NOTE | 2021-03-31 14:27 | CHAPLAIN ---
Eloina was hooked up to equipment for an EEG when I visited. Earlier I brought her rosary. She is [employer] and attended the [employer] in [place], [place] prior to COVID restrictions. She has since moved to [place], [place] and said she will likely go to [facility] in [place], [place] when churches open up again. Eloina works in the [employer] department of [employer] and said she has very supportive coworkers there. She told me about a scary episode about a month ago when she woke up with lots of secretions and could clear her throat. Someone finally got a nunes from her landlord, got in and called property manager. Eloina said her usually diabetic medications are not working in her body they way the always have, so she relieved to be here, having testing done, and then making a plan so she can live home alone safely.
--- NOTE | 2021-03-31 16:48 | NCONE_ITS ---
Date of service: 03/31/21 Time of Service: 16:49 Assessment and Plan Assessment and plan (1) Hypoglycemia: Status: Acute (2) Seizure: Status: Acute (3) Right sided weakness: Status: Acute Assessment and plan: It sounds like she has been having episodes of nocturnal hypoglycemia as well as hypoglycemia induced seizures, encephalopathy, and hemiparesis. We will continue with EEG overnight. If negative, anticipate weaning off levetiracetam as seizures appear to be provoked. Management of DM as per primary team. History of Present Illness History of Present Illness Chief Complaint: spells Narrative: Handedness: LEFT. HPI: Ms. Rayo is a 60 year-old woman with hypertension, hyperlipidemia, diabetes, and insomnia. Over the last several months, Ms. Rayo has been experiencing increasing frequency nocturnal events such that she awakes with confusion, hemiparesis (usually on right but once on left), bowel/bladder incontinence, tongue bites, and at times with her bedroom a mess (including a hole in the wall). She was seen in the ER on 03/10/21 here after such an event at which time a brain MRI was normal. I was able to see her in clinic on 03/17/21 at which time I started her on LEV 500mg BID as I was concerned about seizures. Since starting this, she has not noticed any change in event frequency not becoming nightly. She installed a camera in her bedroom which she has reviewed after each night. There has been no obvious seizure activity seen on these. Yesterday am, she had another episode. She recalls becoming aware around 11am with her phone and alarm by her head. She was choking on her saliva. She was essentially paralyzed. At that time, rescue services were pounding on her door - they had been called as her co-workers were concerned that she had not come to work and was not answering her phone. Upon arrival of EMS her FSBS was 42. She was treated and taken to [facility] which is the closest ER to her house. They have no neurology or EEG and were unable to find another hospital for her to transfer to. She was transferred her with increase in LEV to 1000mg BID. Overnight, she was found minimally responsive around 4am. FSBS was 26! She quickly rallied with treatment. Consults Requesting physician: Bora Sosa Review of Systems All systems reviewed & are unremarkable except as noted in HPI and below PFSH Active Problem List Hypoglycemia (Acute) Seizure (Acute) Cellulitis (Acute) Right sided weakness (Acute) Medical History Diabetes Hypercholesteremia Hypertension Insomnia Migraine headache with aura Surgical History H/O oophorectomy Hx of appendectomy S/P ACL repair S/P cervical discectomy S/P dilatation and curettage S/P tonsillectomy and adenoidectomy S/P wisdom tooth extraction Status post ORIF of fracture of ankle Family History Mother Hypertension Hyperlipidemia Social History Smoking/Tobacco Use Status: Current every day Tobacco Type: cigarettes Years smoked: 30 Smoking risk assessment performed?: Yes Alcohol Intake: never Drug use: Never Substance use type: does not use Household members: none Number of Children: 0 current occupation: accounting at [employer] What is your relationship status?: Panel score (0-1 are the most socially isolated patients): 0 Do you feel safe at home: Yes Do you feel safe in your relationship?: Yes Visit Medication and Allergies Active Medications Generic Name Dose Route Start Last Admin Trade Name Freq PRN Reason Stop Dose Admin Aspirin 81 mg 03/31/21 08:30 03/31/21 08:07 Aspirin E.C. 81 Mg Tabec PO 81 mg DAILY JESUS Administration Atorvastatin Calcium 20 mg 03/30/21 22:00 03/30/21 22:42 Atorvastatin 20 Mg Tab PO 20 mg HS JESUS Administration Bupropion HCl 150 mg 03/31/21 08:30 03/31/21 08:07 Bupropion-Xl 150 Mg Tabcr PO 150 mg QAM JESUS Administration Dextrose 0 gm 03/30/21 21:16 Glucose 40% Oral Solution 15 Gm/37.5 Gm Tube PO DIRECTED PRN Dextrose/Water 0 gm 03/30/21 21:16 03/31/21 04:02 Dextrose 50%-Water 25 Gm/50 Ml Syr IVP 15 gm DIRECTED PRN Administration Dimethicone/Zinc Oxide 0 gm 03/30/21 21:16 Shun Protect Cream 142 Gm Tube TP PRN PRN Enalapril Maleate 20 mg 03/31/21 08:30 03/31/21 08:08 Enalapril 5 Mg Tab PO 20 mg QAM JESUS Administration Gabapentin 100 mg 03/31/21 08:30 03/31/21 13:27 Gabapentin 100 Mg Cap PO 100 mg TID JESUS Administration Glimepiride 4 mg 03/31/21 12:00 Glimepiride 2 Mg Tab PO 1200 JESUS Hydrochlorothiazide 25 mg 03/31/21 08:30 03/31/21 08:07 Hydrochlorothiazide 25 Mg Tab PO 25 mg DAILY JESUS Administration Sodium Chloride 500 mls @ 0 mls/hr 03/30/21 21:16 Saline 500ml Bag IV PRN PRN As Directed IV Miscellaneous Supplies 1 each 03/30/21 21:30 Iv Access IV DIRECTED [facility] Insulin Aspart 0 units 03/31/21 08:00 03/31/21 15:58 Insulin Aspart 300 Units/3 Ml Pen SC Not Given 0800,1200,1700 [facility] Protocol Levetiracetam 1,000 mg 03/31/21 08:30 03/31/21 08:07 Levetiracetam 500 Mg Tab PO 1,000 mg BID JESUS Administration Metformin HCl 1,000 mg 03/30/21 22:00 Metformin 500 Mg Tab PO BID JESUS Metformin HCl 500 mg 03/31/21 12:00 Metformin 500 Mg Tab PO 1200 [facility] Sodium Chloride 0 ml 03/30/21 21:16 Normal Saline Flush 10 Ml Syr IVP PRN PRN Allergies codeine Adverse Reaction (Unverified 03/17/21 13:51) Itching morphine Adverse Reaction (Unverified 03/17/21 13:51) Itching Exam Narrative Exam Narrative: Physical Exam: Gen: Patient of apparent stated age, NAD Head and face: no facial or cranial abnormalities Neck: Supple, no meningismus, no occipital tenderness CV: + S1, S2, RRR, no murmur Resp: CTA B/L Abd: soft, nontender, nondistended Ext: No edema. No clubbing or cyanosis. No bony deformity. Neuro Exam: Language: fluency, naming, repetition, and comprehension intact; Mental Status: AAOx3, current events intact, fund of knowledge intact; Speech: no dysarthria Cranial nerves: Funduscopy: not performed CN II: visual carrillo intact CN III, IV, : extraocular movements intact, no nystagmus, pupils symmetric and reactive to light CN V: face sensation intact to LT CN VII: no facial asymmetry noted CN VIII: hearing intact bilaterally CN IX, X: palate rises symmetrically CN XI: trapezius/SCM 5/5 bilaterally CN XII: protrudes tongue symmetrically Sensory: intact to LT in all extremities Motor: bulk and tone intact. Fine motor movements reduced slightly bilaterally. No pronator drift. Strength 5/5 throughout including the deltoids, biceps, triceps, wrist extensors, hip flexors, knee flexors, knee extensors, ankle flexors, and ankle extensors. Reflexes: hyporeflexic throughout; toes down going bilaterally; Coordination: FTN and HTS intact bilaterally Gait: unable to test at present as she is on EEG Results Last Vital Signs Temp 96.8 F L 03/31/21 16:03 Pulse 62 03/31/21 16:05 Resp 14 03/31/21 16:03 BP 101/65 03/31/21 16:03 Pulse Ox 98 03/31/21 16:03 Labs Result diagrams: 03/31/21 04:16 03/31/21 04:35 Labs: Laboratory Results - last 24 hr 03/31/21 03/31/21 03/31/21 04:16 04:30 04:35 WBC Cancelled RBC Cancelled Hgb Cancelled Hct Cancelled MCV Cancelled MCH Cancelled MCHC Cancelled RDW Cancelled Plt Count Cancelled MPV Cancelled Immature Gran % Cancelled Neutrophils % Cancelled Band Neutrophils % Cancelled Lymphocytes % Cancelled Atypical Lymphs % Cancelled Monocytes % Cancelled Eosinophils % Cancelled Basophils % Cancelled Metamyelocytes % Cancelled Myelocytes % Cancelled Promyelocytes % Cancelled Other Cells % Cancelled Nucleated RBC % Cancelled Absolute Neutrophils Cancelled Absolute Lymphocytes Cancelled Absolute Monocytes Cancelled Absolute Eosinophils Cancelled Absolute Basophils Cancelled RBC Morphology Cancelled Polychromasia Cancelled Hypochromasia Cancelled Poikilocytosis Cancelled Basophilic Stippling Cancelled Anisocytosis Cancelled Microcytosis Cancelled Macrocytosis Cancelled Spherocytes Cancelled Tear Drop Cells Cancelled Ovalocytes Cancelled Stomatocytes Cancelled Kendrick-North[place] Bodies Cancelled Rosedale Cells/Echinocytes Cancelled Acanthocytes (Spur) Cancelled Schistocytes Cancelled Sodium 143 Potassium 3.6 Chloride 106 Carbon Dioxide 30.2 Anion Gap 6.8 BUN 13 Creatinine 0.9 Estimated GFR/1.73 m2 >= 60.00 Glucose 91 Hemoglobin A1c Calcium 9.4 Magnesium 1.8 03/31/21 03/31/21 04:35 05:35 WBC RBC Hgb Hct MCV MCH MCHC RDW Plt Count MPV Immature Gran % Neutrophils % Band Neutrophils % Lymphocytes % Atypical Lymphs % Monocytes % Eosinophils % Basophils % Metamyelocytes % Myelocytes % Promyelocytes % Other Cells % Nucleated RBC % Absolute Neutrophils Absolute Lymphocytes Absolute Monocytes Absolute Eosinophils Absolute Basophils RBC Morphology Polychromasia Hypochromasia Poikilocytosis Basophilic Stippling Anisocytosis Microcytosis Macrocytosis Spherocytes Tear Drop Cells Ovalocytes Stomatocytes Kendrick-[place] Bodies Chai Cells/Echinocytes Acanthocytes (Spur) Schistocytes Sodium Cancelled Potassium Cancelled Chloride Cancelled Carbon Dioxide Cancelled Anion Gap Cancelled BUN Cancelled Creatinine Cancelled Estimated GFR/1.73 m2 Cancelled Glucose Cancelled Hemoglobin A1c 7.7 H Calcium Cancelled Magnesium
--- NOTE | 2021-03-31 16:49 | PDOC.EEG ---
Neurology EEG EEG: [facility] Department of Neurology INPATIENT EEG REPORT Date of Recordin03/31/21 at 11:44:22 to 03/31/21 at 16:27:04 Interpreting Physician: Dr. Ashley Hutchinson Reason for study: Ms. Rayo is a 60 year-old woman with several weeks of increasing nocturnal spells concerning for seizure. Current Medications: Current Medications Aspirin (Aspirin E.C. 81 Mg Tabec) 81 mg PO DAILY [facility] Last Admin: 03/31/21 08:07 Dose: 81 mg Documented by: Atorvastatin Calcium (Atorvastatin 20 Mg Tab) 20 mg PO HS [facility] Last Admin: 03/30/21 22:42 Dose: 20 mg Documented by: Bupropion HCl (Bupropion-Xl 150 Mg Tabcr) 150 mg PO QAM [facility] Last Admin: 03/31/21 08:07 Dose: 150 mg Documented by: Dextrose (Glucose 40% Oral Solution 15 Gm/37.5 Gm Tube) 0 gm PO DIRECTED PRN Dextrose/Water (Dextrose 50%-Water 25 Gm/50 Ml Syr) 0 gm IVP DIRECTED PRN Last Admin: 03/31/21 04:02 Dose: 15 gm Documented by: Dimethicone/Zinc Oxide (Shun Protect Cream 142 Gm Tube) 0 gm TP PRN PRN Enalapril Maleate (Enalapril 5 Mg Tab) 20 mg PO QAM [facility] Last Admin: 03/31/21 08:08 Dose: 20 mg Documented by: Gabapentin (Gabapentin 100 Mg Cap) 100 mg PO TID [facility] Last Admin: 03/31/21 13:27 Dose: 100 mg Documented by: Glimepiride (Glimepiride 2 Mg Tab) 4 mg PO 1200 [facility] Hydrochlorothiazide (Hydrochlorothiazide 25 Mg Tab) 25 mg PO DAILY [facility] Last Admin: 03/31/21 08:07 Dose: 25 mg Documented by: Sodium Chloride (Saline 500ml Bag) 500 mls @ 0 mls/hr IV PRN PRN IV Miscellaneous Supplies (Iv Access) 1 each IV DIRECTED [facility] Insulin Aspart (Insulin Aspart 300 Units/3 Ml Pen) 0 units SC 0800,1200,1700 [facility]; Protocol Last Admin: 03/31/21 15:58 Dose: Not Given Documented by: Levetiracetam (Levetiracetam 500 Mg Tab) 1,000 mg PO BID [facility] Last Admin: 03/31/21 08:07 Dose: 1,000 mg Documented by: Metformin HCl (Metformin 500 Mg Tab) 1,000 mg PO BID [facility] Metformin HCl (Metformin 500 Mg Tab) 500 mg PO 1200 [facility] Sodium Chloride (Normal Saline Flush 10 Ml Syr) 0 ml IVP PRN PRN METHODS: A 21 channel digitized electroencephalogram was performed in the [facility] Med/Surg Floor or ICU. The 10/20 international system of electrode placement was used and bipolar and referential electrode montages were recorded. In addition to EEG the patient was monitored for EKG and lateral/vertical eye movements. Activation procedures of photic stimulation and hyperventilation were performed if applicable. Video was used during activation procedures and during events where applicable. The duration of the recording was ~4.5 hours. DESCRIPTION OF EEG: Waking background activity: During maximal wakefulness a 9-Hz posterior background rhythm was present which was well-modulated, symmetrical, reactive to eye opening, and of moderate voltage. Faster frequencies were present in the bilateral anterior head regions. There was a normal anterior-posterior voltage gradient. Drowsy and sleeping background activity: During drowsiness, there was attenuation of the posterior dominant background rhythm and vertex waves. No sleep was recorded. Interictal abnormalities: none. Ictal findings: No events recorded. Activating Procedures: Photic stimulation was performed which produced a symmetrical posterior driving response at various flash frequencies. Hyperventilation was not performed. EKG: EKG revealed normal sinus rhythm. INTERPRETATION: This long-term EEG is normal during the awake state as well as during photic stimulation. No events recorded. PRIOR EEG: none CLINICAL CORRELATION: No focal regions of cerebral dysfunction or epileptiform activity was present. The plan is to continue to record overnight. Ashley Hutchinson MD
[2021-03-31] MEDS: Atorvastatin 20 MG TAB PO (20:54)
[2021-04-01 03:40] VITALS: BP 106/63; PULSE 67; RESP 16; TEMP 36.6; O2SAT 98
[2021-04-01 07:04] VITALS: PULSE 53
[2021-04-01 07:47] VITALS: BP 133/76; PULSE 68; RESP 16; TEMP 36.6; O2SAT 100
[2021-04-01] MEDS: Enalapril 5 MG TAB 20 MG PO (08:25)
[2021-04-01] MEDS: levETIRAcetam 500 MG TAB 1000 MG PO (08:26)
[2021-04-01] MEDS: Gabapentin 100 MG CAP PO ×2 (08:26→13:22)
[2021-04-01] MEDS: buPROPion-XL 150 MG TABCR PO (08:26)
[2021-04-01] MEDS: Aspirin E.C. 81 MG TABEC PO (08:26)
[2021-04-01] MEDS: hydroCHLOROthiazide 25 MG TAB PO (08:27)
--- NOTE | 2021-04-01 08:36 | PDOC.CMPRO ---
- If Service Date Differs Date of service: 04/01/21 Time of Service: 08:36 Care Management Progress Note S/O: A: Eloina is a 60 year old woman admitted on 03/30/21 with seizures and hypoglycemia P:Eloina will likley be discharged home with no new services. She will follow up with her PCP and plan of care and transport with friends. CM will support Eloina and her discharge needs.
--- NOTE | 2021-04-01 08:37 | PDOC.EEG_ITS ---
Neurology EEG EEG: [facility] Department of Neurology INPATIENT EEG REPORT Date of Recordin03/31/21 at 16:42:22 to 04/01/21 at 07:52:26 Interpreting Physician: Dr. Ashley Hutchinson Reason for study: Ms. Rayo is a 60 year-old woman admitted with n octurnal spells concerning for seizure. Current Medications: Current Medications Aspirin (Aspirin E.C. 81 Mg Tabec) 81 mg PO DAILY [facility] Last Admin: 04/01/21 08:26 Dose: 81 mg Documented by: Atorvastatin Calcium (Atorvastatin 20 Mg Tab) 20 mg PO HS [facility] Last Admin: 03/31/21 20:54 Dose: 20 mg Documented by: Bupropion HCl (Bupropion-Xl 150 Mg Tabcr) 150 mg PO QAM [facility] Last Admin: 04/01/21 08:26 Dose: 150 mg Documented by: Dextrose (Glucose 40% Oral Solution 15 Gm/37.5 Gm Tube) 0 gm PO DIRECTED PRN Dextrose/Water (Dextrose 50%-Water 25 Gm/50 Ml Syr) 0 gm IVP DIRECTED PRN Last Admin: 03/31/21 04:02 Dose: 15 gm Documented by: Dimethicone/Zinc Oxide (Shun Protect Cream 142 Gm Tube) 0 gm TP PRN PRN Enalapril Maleate (Enalapril 5 Mg Tab) 20 mg PO QAM [facility] Last Admin: 04/01/21 08:25 Dose: 20 mg Documented by: Gabapentin (Gabapentin 100 Mg Cap) 100 mg PO TID [facility] Last Admin: 04/01/21 08:26 Dose: 100 mg Documented by: Glimepiride (Glimepiride 2 Mg Tab) 4 mg PO 1200 [facility] Hydrochlorothiazide (Hydrochlorothiazide 25 Mg Tab) 25 mg PO DAILY [facility] Last Admin: 04/01/21 08:27 Dose: 25 mg Documented by: Sodium Chloride (Saline 500ml Bag) 500 mls @ 0 mls/hr IV PRN PRN IV Miscellaneous Supplies (Iv Access) 1 each IV DIRECTED [facility] Insulin Aspart (Insulin Aspart 300 Units/3 Ml Pen) 0 units SC 0800,1200,1700 [facility]; Protocol Last Admin: 04/01/21 08:27 Dose: Not Given Documented by: Levetiracetam (Levetiracetam 500 Mg Tab) 1,000 mg PO BID [facility] Last Admin: 04/01/21 08:26 Dose: 1,000 mg Documented by: Metformin HCl (Metformin 500 Mg Tab) 1,000 mg PO BID [facility] Metformin HCl (Metformin 500 Mg Tab) 500 mg PO 1200 [facility] Sodium Chloride (Normal Saline Flush 10 Ml Syr) 0 ml IVP PRN PRN METHODS: A 21 channel digitized electroencephalogram was performed in the [facility] Med/Surg Floor or ICU. The 10/20 international system of electrode placement was used and bipolar and referential electrode montages were recorded. In addition to EEG the patient was monitored for EKG and lateral/vertical eye movements. Activation procedures of photic stimulation and hyperventilation were performed if applicable. Video was used during activation procedures and during events where applicable. The duration of the recording was ~15 hours. DESCRIPTION OF EEG: The patient was noted to be awake, drowsy, and asleep during the recording. During maximal wakefulness a 9-Hz posterior background rhythm was present which was well-modulated, symmetrical, reactive to eye opening, and of moderate voltage. With eye opening the background activity changed to a low voltage mixture of alpha, beta, and occasional theta range frequencies. Faster frequencies were present in the bilateral anterior head regions. There was a normal anterior-posterior voltage gradient. During drowsiness, there was attenuation of the posterior dominant background rhythm and vertex waves. Stage II sleep was present with symmetrical sleep spindles, K-complexes, and vertex waves. No events captured. No epileptiform activity seen. Activating Procedures: Not performed. EKG: EKG revealed normal sinus rhythm. INTERPRETATION: This EEG is normal during this overnight EEG. PRIOR EEG: -EEG (03/31/21 [id number]): normal. CLINICAL CORRELATION: No focal regions of cerebral dysfunction or epileptiform activity was present. Ashley Hutchinson MD
--- NOTE | 2021-04-01 08:44 | W.PM.PROGNOT ---
Date of Service Date of service: 04/01/21 Time of Service: 08:45 Subjective Subjective Interval history since last seen: Patient not seen in person. Called in to discuss normal EEG with her. No events overnight and no hypoglycemia after all DM meds held. Given normal EEG and known hypoglycemia, ok to stop levetiracetam. She will f/up with me in clinic as scheduled. Objective Last Vital Signs Temp 97.9 F 04/01/21 07:47 Pulse 68 04/01/21 07:47 Resp 16 04/01/21 07:47 BP 133/76 04/01/21 07:47 Pulse Ox 100 04/01/21 07:47 Laboratory Results - last 24 hr 03/31/21 04:35 Hemoglobin A1c 7.7 H
--- NOTE | 2021-04-01 10:30 | DSE_ITS ---
Date of service: 04/01/21 Time of Service: 10:31 DS: Diagnosis Discharge Diagnosis (1) Hypoglycemia: Start date: 04/01/21 Start time: 10:32 Status: Acute Asessment and Plan: This appears to be the cause of her episodes not seizures as below. Evening Lantus will be discontinued. Continue PO meds. assistant health educator will place CGM and follow as outpatient, this will give patient better control of glucose levels and know if she is low. No c/o otherwise. She does state eating less lately and some wt loss which has likely contributed to her hypoglycemia. She will need follow up with PCP in 1-2 weeks to monitor glucose levels and change regimen as needed. Also f/u with assistant health educator as an outpatient. (2) Seizure: Start date: 04/01/21 Start time: 10:32 Status: Ruled-out Asessment and Plan: Continuous EEG done read by Dr. Cazares. No seizure activity. D/c keppra per her order. Patient having spells due to hypog lycemia. (3) Right sided weakness: Start date: 04/01/21 Start time: 11:15 Status: Acute Asessment and Plan: Improved, from above discussed with Dr. Arroyo Discharge Plan Disposition Patient Disposition: HOME Condition: Improving Discharge Details Reason For Visit: Seizure, hypoglycemia Admit Date/Time: 03/30/21 21:17 Admit Provider: Bora Sosa Attending Provider: Bora Sosa Primary Care Provider: [facility] Hospital Course: 60 y.o female admitted to [facility] due to hypoglycemic reaction. This has been recurrent over the last 8-10 weeks. She endorses changing diet and wt loss which likely has contributed. She is also not eating at night. She had a number of episodes in which she found herself weak on her right side of her body and sometimes in the middle of the night she was crawling to the bathroom. She does not think that these have been related to hypoglycemia as sometimes she gets up after she composes her self and is able to walk and her sugars are above 70. A few weeks ago she was seen in the emergency department and because of her episodes it was thought that she might have a seizure disorder and was started on Keppra. Over course of hospital stay she had overnight EEG and was evaluated by Dr. Cazares. She was found to have no seizure activity, however she was having hypoglycemic episode. Yessica has been dcd. Will dc lantus as well. She will be getting CGM to better monitor BGL and f/u with PCP to look at regimen for diabetes. she is going to meet with clinical trial educator as an outpatient and f/u with PCP. Weakness has improved. F/u with PCP in 1-2 weeks. Monitor BGL. Home Meds and New Rx's Prescriptions: Continued aspirin 81 mg tablet,delayed release (DR/EC) 81 mg PO DAILY RF: 0 metformin 500 mg tablet See Rx Instructions .ROUTE .COMPLEX RF: 0 atorvastatin 20 mg tablet 20 mg PO QHS RF: 0 enalapril maleate 20 mg tablet 20 mg PO QAM RF: 0 glimepiride 4 mg tablet 8 mg PO QNOON RF: 0 hydrochlorothiazide 25 mg tablet 25 mg PO DAILY RF: 0 gabapentin 100 mg capsule 100 mg PO TID RF: 0 bupropion HCl 150 mg tablet extended release 24 hr 150 mg PO QAM RF: 0 doxepin 25 mg capsule 25 mg PO HS RF: 0 Discontinued levetiracetam 500 mg tablet 500 mg PO BID Qty: 60 RF: 4 Lantus U-100 Insulin 100 unit/mL solution 25 unit SUBCUT QHS RF: 0 Discharge Instructions Instructions: Hypoglycemia in a Person with Diabetes (DC), Diabetes and Nutrition (DC) Additional Instructions: Stop taking Keppra (levitrim). You are not having seizures. Stop taking lantus at night. Follow up with clinical trial educator and PCP. F/u with PCP in 1-2 weeks. Monitor glucose to prevent hypoglycemia. The monitor should alarm you when you are running low, so will need to eat at that time to avoid episodes. Stand Alone Forms: Nursing Discharge Form Referrals: Sisi Belcher [Primary Care Provider] - (Please call to make a follow appointment for 1-2 weeks) Activity:: Activity as Tolerated Equipment/Supplies:: No Equipment Needed Diet:: Carb Counting Discharge Orders Discharge Orders: Discharge Order (Routine); Ordered 04/01/21 Ordered By: Lizette Caldera DS: Summary Time Spent with Patient providing and/or coordinating discharge services: Less than 30 minutes Status at Discharge Functional status at discharge: independent ambulation Overall status at discharge: patient is back to baseline Mental Status: mental status grossly normal Speech and Movement: speech and movement normal Mood: congruent mood Affect: normal affect Exam Const General: cooperative, healthy appearing, no acute distress and well developed Nutritional Appearance: average body habitus Orientation: alert, awake and oriented x3 HENMT Mouth: oral mucosae normal and normal tongue Eyes General: appearance normal, both eyes and all related structures Pupils: PERRL EOM: EOM intact bilaterally Neck Neck: normal visual inspection, no lymphadenopathy and no JVD Resp Effort & Inspection: normal respiratory effort and able to speak in complete sentences Auscultation: no rales and no wheezes Cardio Jugular venous pressure: no JVD Rate: regular rate Rhythm: regular rhythm Heart Sounds: S1 normal, S2 normal, no gallops and no murmurs GI Inspection: normal to inspection Palpation: soft, no hepatosplenomegaly and nontender Neuro Cranial Nerves: CN's II-XI intact bilaterally Speech: speech normal Motor: strength 5/5 throughout and no pronator drift Coordination: [id number] test normal Extrem General: normal to inspection and no edema Psych Mental Status: mental status grossly normal Speech and Movement: speech and movement normal Mood: congruent mood Affect: normal affect DS: Data Vitals/I&O Vitals and I&O: Vital Signs Temperature 36.6 C 04/01/21 07:47 Temperature Source Tympanic 04/01/21 07:47 Pulse 68 04/01/21 07:47 Pulse Rhythm Regular 04/01/21 08:19 Respiratory Rate 16 04/01/21 07:47 Respiratory Effort 04/01/21 08:19 Respiratory Depth Normal 04/01/21 08:19 Respiratory Pattern Normal 04/01/21 08:19 Blood Pressure 133/76 04/01/21 07:47 Pulse Oximetry 100 04/01/21 07:47 Oxygen Delivery Method Room Air 04/01/21 07:47 Oxygen Flow Rate 0 04/01/21 07:47 Pain Level 0 04/01/21 07:47 Comment 03/31/21 19:05 Intake & Output 03/31/21 03/31/21 04/01/21 11:59 23:59 11:59 Intake Total 500 / 740 240 / 740 120 / 120 Balance 500 / 740 240 / 740 120 / 120 Weight 81.647 kg Intake: IV Oral 490 / 730 240 / 730 120 / 120 Other: Urine Appearance Clear Clear Clear PFSH Active Problem List Hypoglycemia (Acute) Cellulitis (Acute) Right sided weakness (Acute) Medical History Diabetes Hypercholesteremia Hypertension Insomnia Migraine headache with aura Surgical History H/O oophorectomy Hx of appendectomy S/P ACL repair S/P cervical discectomy S/P dilatation and curettage S/P tonsillectomy and adenoidectomy S/P wisdom tooth extraction Status post ORIF of fracture of ankle Family History Mother Hypertension Hyperlipidemia Social History Smoking/Tobacco Use Status: Current every day Tobacco Type: cigarettes Years smoked: 30 Smoking risk assessment performed?: Yes Alcohol Intake: never Drug use: Never Substance use type: does not use Household members: none Number of Children: 0 current occupation: accounting at [employer] What is your relationship status?: Panel score (0-1 are the most socially isolated patients): 0 Do you feel safe at home: Yes Do you feel safe in your relationship?: Yes
[2021-04-01] MEDS: Insulin Aspart 300 UNITS/3 ML PEN SC (11:59)
[2021-04-01 12:23] VITALS: BP 90/54; PULSE 75; RESP 12; TEMP 36.4; O2SAT 97
--- NOTE | 2021-04-01 14:12 | DIABASSESS_ITS ---
Date of service: 04/01/21 Time of Service: 14:12 Diabetes Note NOTE: Suggested use of CGM was brought up at morning meeting and agreed to be a good avenue for glycemic evaluation to help guide diabetes management. Eloina was approached and she was agreeable to use a Dexcom CGM today at discharge and follow up with an outpatient nutrition visit on 04/13 at 10am. The goal was to get the device on Eloina to begin readings prior to discharge today, however her current phone is not compatible and cannot download the mobile germain for data collection. However she does have a new phone waiting for her at home that is compatible. This writer producer reviewed how to affix the reader and which apps needed to be downloaded to collect the data. She verbalized confidence in following the quick start guide to set up the CGM when she gets home and agreed to the follow-up visit which was set up to review her data and share with her care team. Epifanio Sheikh NDTR ? Dietetic Medical Records Analyst Time Spent in Nutritional Counseling and Treatment: 30 minutes
--- NOTE | 2021-04-01 15:14 | PDOC.CMDIS ---
- If Service Date Differs Date of service: 04/01/21 Time of Service: 15:14 LACE Index Scoring Tool - Questions: Length of Stay (in days): 2 Acuity (Admit via E.D.?): Yes Comorbidities: Diabetes w/o Complication E.D. Visits: 2 - Answers: Total Score: 8 Risk of Readmission: Low Risk Care Management Discharge Reason for Hospitalization: Seizure Discharge Plan: Eloina will be discharged home with no new services. She will follow up with her PCP and plan of care and transport with friends. Eloina was provided with a CGM to help with the control of her blood sugars. Patient/Family Education Needs: Review of discharge instructions, medications, activity, limitations, follow up plan and discuss Ask Me Three
== END 2021-04-01 14:57 | disposition home or self-care (01) ==
PROVIDERS: Nurse Practitioner Acute Care; Admitting Provider Family Medicine; PCP Registered Nurse; Visit Provider Family Medicine
DX: E11.649 Type 2 diabetes mellitus with hypoglycemia without coma (principal); G93.41 Metabolic encephalopathy; R56.9 Unspecified convulsions; Z79.84 Long term (current) use of oral hypoglycemic drugs; I10 Essential (primary) hypertension; E78.00 Pure hypercholesterolemia, unspecified; G47.00 Insomnia, unspecified; G43.109 Migraine with aura, not intractable, without status migrainosus; F17.210 Nicotine dependence, cigarettes, uncomplicated; Z23 Encounter for immunization; G81.91 Hemiplegia, unspecified affecting right dominant side
CPT/HCPCS: 36415; 80048; 90686; 95711; 95714; 83036; 83735; 85025; 99217; 99220; J1815

== ENCOUNTER 2021-04-13 10:00 | Outpatient (CLI) | payer BC, SELFPAY ==
--- NOTE | 2021-04-13 10:00 | NS.NUTBLAN_ITS ---
This is a follow up visit to review Eloina?s CGM data (dexcom 6) which was placed at discharge during her most recent [facility] admission for hypoglycemia (03/30/21-04/01/21), where she was evaluated for possible nocturnal seizure and managed for the hypoglycemia. PMH: poorly controlled DM2, HTN, eating disorder with restricting/binging and purging, hx of addiction. DM meds: metformin at 1,000mg AM, 500mg Q noon and 1000mg PM per day and Glimepiride 8mg Q noon. Lantus discontinued after recent hospitalization and hypoglycemic events. Ambulatory Glucose Profile: Dates: 04/02/21- 04/13/21 Actual Goal Average Blood Sugar: 214mg/dl 80-120 mg/dl Glucose Management Indicator: n/a < 7% Glucose Variability: 18.4% < 36% Time In Range (70-180 mg/dl) 21.9% >70% Below 70 mg/dl: 0.0% < 4% Below 54 mg/dl : 0.0% < 1% Above 180 mg/dl: 78.1% < 25% Above 250 mg/dl: 19.6% < 5% Ambulatory GLuose profile indicates elevated glucose levels since discontinuing long activing insulin and despite a low carb diet. Suspect gluconeogenesis and insulin resistance. Recommend continued use of Dexcom 6 CGM and adjustments in diet and medications for optimal glycemic control and continued dietary counseling to address eating disorder triggers. Session today focused on having consistent carbohydrates to a minimum of 80-100g per day to avoid liver contributing to her glycemic highs with suggested foods. Instructed Eloina how to replace Dexcom 6 sensor every 10 days. Recommendations: Eloina to follow [id number] kcal, 80-100 g carb, 60-70 g protein, 45-55 g fat daily Would d/c glimepiride as contributes to hypoglycemia. Will need prescription for Dexcom 6 sensors- needs 3 per month. Will need transmitter in 2 months (lasts 90 days) Consider adding a DPP such as Januvia Restart low dose of lantus to address nocturnal hyperglycemia. Titrate lantus until morning fasting sugars < 180 mg/dl Restart Vitamin D repletion (hx of deficiency in past) Follow up apt. 04/20/21 at 11 am. Epifanio Sheikh NDTR ? Broodmare Foreman Time spent with patient: 45 minutes
== END 2021-04-13 10:01 | disposition home or self-care (01) ==
LOC: DS 04-15 14:38
PROVIDERS: PCP Nurse Practitioner Family; Referring Provider Nurse Practitioner Family; Visit Provider Dietitian, Registered
DX: R69 Illness, unspecified (principal)
CPT/HCPCS: 97803

== ENCOUNTER 2021-04-20 10:40 | Outpatient (CLI) | payer BC, SELFPAY ==
--- NOTE | 2021-04-20 11:00 | NS.NUTBLAN_ITS ---
Eloina reports visiting with her PCP when she brought her mother in for a scheduled appointment and reports the following changes since were made after this visit: Glimiperide was discontinued, referral was made to an investigator vice (she reports making it a priority to schedule a visit right after the New Year), she received her Rx for continued use of Dexcom CGM to help with her diabetes management decisions, and she has started basal insulin (Lantus) at 5 units HS which is currently being increased 2 units q 3 days to help address her daytime highs (see CGM report 04/08-04/20). She is currently taking 7 units Lantus and will be going up to 9 units 04/21. Eloina?s most recent CGM data we looked at today (04/08-04/20) is similar to patterns noted at her last visit, with some improvements, but many daytime highs. Her time in range (70-180mg/dL) was 36%, a 2% improvement from last visit. Her time spent in the high range (180-250mg/dL) was 50%, a 5% improvement and her time spent above 250mg/dL was 14%, a 3% decline from last visit. Her average glucose reported on the CGM was 200mg/dL. Of note is the absence of night time highs and no readings below 70mg/dL over the last week. Overall, Eloina verbalizes her positive experience and sense of empowerment using the CGM device. She reports understanding how important consistent carbohydrate intake is. She continues to use [employer] [address] germain for tracking her intake. At today?s visit we spend our time discussing the factors that influence glycemic spikes. Specifically, choosing high fiber and minimally- processed grains and starch choices about 85% of the time and tracking added sugar intake periodically to become aware of this facet of CHO intake. She was given a goal of trying to limit herself to 40grams of added sugar per day and allowing herself this budget to add sweetener of have a little concentrated sweet. Still suggested to her to keep sugar beverages off her regular menu. We reviewed some ideas for simple cycle menus to rotate around and made the following plan until we follow up again (Eloina would like to aim for 3 months): Continue to work with PCP on current basal insulin protocol and make an appointment with endocrinology. She will periodically track her added sugar intake and work to reduce this intake to <40grams/day. Attention will be given to more traditional, high fiber starch choices. Will reach out to patient in 3 months if she has not called to schedule another nutrition follow up. Epifanio Sheikh NDTR ? Ic Design Engineer Reviewed by Anisha Butler RDN, JEANNINE. Agree with plan. Time spent with patient: 45 minutes
== END 2021-04-20 10:41 | disposition home or self-care (01) ==
LOC: DS 04-21 10:43
PROVIDERS: PCP Registered Nurse; Visit Provider Dietitian, Registered
DX: E11.9 Type 2 diabetes mellitus without complications (principal); Z79.4 Long term (current) use of insulin; Z71.3 Dietary counseling and surveillance
CPT/HCPCS: G0271

== ENCOUNTER 2023-05-16 12:28 | Emergency (ER) | payer BC, SELFPAY ==
[2023-05-16] VITALS (9 sets, daily range): BP systolic 178–198; BP diastolic 82–88; PULSE 65–83; RESP 10–23; TEMP 36.6; O2SAT 95–98
--- NOTE | 2023-05-16 12:45 | RT.EKG_ITS ---
APPROVED REPORT Exam: Resting ECG Reason for Exam: palpitations Patient Location: E HR:78 bpm ECG Measurements Heart Rate 78 AXIS NV 144 P 70 QRSd 80 QRS 6 QT 394 T 58 QTc 448 Conclusion Sinus rhythm...normal P axis, V-rate 60- 99
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
--- NOTE | 2023-05-16 14:15 | DI.RAD_ITS ---
Exam(s) XR CHEST 2V PA LATERAL EXAM: XR CHEST 2V PA LATERAL CLINICAL HISTORY: palpitations TECHNIQUE: 2D digital imaging was performed. COMPARISON: CR XR CHEST 1V IN DI DEPT from 03/10/2021 FINDINGS: HEART: Normal size. Aorta: Not dilated. PULMONARY VASCULATURE: Normal. LUNGS: Clear. PLEURAL SPACE: No pleural effusion or pneumothorax. BONE:Hardware in lower cervical spine. Degenerative changes in thoracic spine. Soft tissues: Unremarkable. IMPRESSION: No acute abnormality. DATA REPOSITORY: RADIATION DOSE DELIVERED:
[2023-05-16] MEDS: Normal Saline 1,000 ML 1000 ML IV (14:29)
[2023-05-16 14:38] LABS: Abs Immature Grans 0.04 10^3/uL (0.0-0.06); Absolute Basophil Count 0.07 10^3/uL (0.0-0.2); Absolute Eosinophil Count 0.19 10^3/uL (0.0-0.7); Absolute Lymphocyte Count 3.71 10^3/uL (1.2-3.4); Absolute Monocyte Count 0.55 10^3/uL (0.1-0.8); Absolute Neutrophil Count 5.45 10^3/uL (1.2-6.7); Basophils % 0.7; Eosinophils % 1.9; HCT 44.3 % (36.0-46.0); HGB 14.5 g/dL (11.2-15.7); Immature Grans % 0.4; Lymphocytes % 37.1; MCH 27.8 pg (27.0-33.0); MCHC 32.7 % (32.0-36.0); MCV 85 fL (80-95); MPV 10.3 fL (8.0-11.0); Monocytes % 5.5; Neutrophils % 54.4; Platelet Count 373 10^3/uL (130-400); RBC 5.21 10^6/uL (3.93-5.22); RDW 13.2 % (11.7-14.6); WBC 10.01 10^3/uL (4.4-10.8)
[2023-05-16 14:58] LABS: ALT 17 U/L (14-59); AST 13 U/L (15-37); Albumin 3.2 g/dL (3.4-5.0); Alkaline Phosphatase 94 U/L (46-116); Anion Gap 7.4 mmol/L (3-11); BUN 14 mg/dL (7-18); Bilirubin, Total 0.5 mg/dL (0.2-1.0); CO2 30.6 mmol/L (21.0-32.0); CREATININE 1.2 mg/dL (0.55-1.02); Calcium 9.9 mg/dL (8.5-10.1); Chloride 103 mmol/L (98-107); Glucose 235 mg/dL (74-106); Magnesium 1.8 mg/dL (1.8-2.4); Potassium 3.8 mmol/L (3.5-5.1); Sodium 141 mmol/L (136-145); TSH (W/Ref FT4) 1.06 uIU/mL (0.36-3.74); Total Protein 6.6 g/dL (6.4-8.2); Troponin I < 50 ng/L (< or =60)
== END 2023-05-16 16:09 | disposition home or self-care (01) ==
PROVIDERS: Emergency Provider Emergency Medicine Emergency Medical Services; PCP Registered Nurse
DX: R00.2 Palpitations (principal); E11.65 Type 2 diabetes mellitus with hyperglycemia; I10 Essential (primary) hypertension; E78.00 Pure hypercholesterolemia, unspecified; Z79.4 Long term (current) use of insulin; Z79.84 Long term (current) use of oral hypoglycemic drugs; Z79.85 Long-term (current) use of injectable non-insulin antidiabetic drugs; F17.210 Nicotine dependence, cigarettes, uncomplicated; Z79.82 Long term (current) use of aspirin
CPT/HCPCS: 36415; 80053; 93005; 93308; 96361; 99284; 71046; 83735; 84443; 84484; 85025; 93010